=== PATIENT | female | born 1925 | race Caucasian/White ===

== ENCOUNTER 2016-05-15 17:45 | Emergency (ER) | payer MEDICARE, OTHER ==
[2016-05-15] VITALS (8 sets, daily range): BP systolic 159–174; BP diastolic 57–83; PULSE 75–84; RESP 12–24; O2SAT 94–99
[~2016-05-15] VITALS: Ht 160 cm; Wt 74.5 kg
[~2016-05-15 17:45] MED LIST: ASA325 PO; CALC600T12 PO; CHOL400C8 PO; CITA20TA PO; FLONASE; HYDR12.55 PO; MULT-1007 PO; OMEG-38 PO; OXYC-176 PO; VIS25 PO; VRP180TCR PO
[2016-05-15 17:57] LABS: BASOPHILS % (AUTO) 0.5 % (0-3); EOSINOPHILS % (AUTO) 10.8 % (0-5); MONOCYTES % (AUTO) 6.8 % (4-12); Mean Corpuscular Hemoglobin 30.3 pg (27.0-35.0); NEUTROPHILS % (AUTO) 48.4 % (40-74); Platelet Count 147 bil/L (150-400)
--- NOTE | 2016-05-15 18:01 | ED.REPORT ---
HPI-Neurologic Deficit Date of Service May 15, 2016 ED Provider: Narcisa Piedra MD 89 year old female with a history of atrial fibrillation, hypercholesterolemia, and HTN presents to the ER via EMS accompanied by her daughter due to sudden onset right side weakness. Last known normal around 17:00 today. Daughter reports that her partner heard screaming from the garage, and found her mother by the car with diffuse right side deficits. Medics report slurred speech and weakness on the right side upon their arrival at the patient's home, progressively worsening. Patient typically takes 325mg ASA daily, though family members are unsure if she has taken it today. Nursing Notes Stated Complaint: STROKE Chief Complaint: Neuro Symptoms/ Deficits Nursing Notes Reviewed: Yes Allergies: Coded Allergies: hydrocodone bitartrate (Verified Allergy, Severe, N&V, 05/15/16) Scheduled Aspirin-Expunged Drug, Do Not Renew! (Aspirin-Expunged Drug, Do Not Renew!) 325 Mg Tablet 325 MG PO DAILY CHOLECALCIFEROL-Expunged Drug, Do Not Renew! (VITAMIN D3-Expunged Drug, Do Not Renew!) 400 Unit Capsule 400 UNIT PO DAILY Calcium Carbonate (Calcium) 600 Mg Tablet 250 MG PO DAILY Citalopram-Expunged Drug, Do Not Renew! (Citalopram-Expunged Drug, Do Not Renew! ) 20 Mg Tablet 20 MG PO AM TAKE ONE-HALF(10MG) TO ONE(20MG) TABLET BY MOUTH IN THE MORNING AND ONE TABLET AT NIGHT. Fluticasone-Expunged Drug, Do Not Renew! (Flonase-Expunged Drug, Do Not Renew!) 120 Sprays/16 Gm Aero 2 SPR NA DAILY IN EACH NOSTRIL Hydrochlorothiazide-Expunged, Do Not Renew! (Hydrochlorothiazide-Expunged, Do Not Renew!) 12.5 Mg Tablet 12.5 MG PO AM Multivitamin (Multi-Vitamin Daily) 1 Each Tablet 1 EACH PO DAILYWM OMEGA-3/DHA/EPA/FISH OIL-Expunged Drug, Do No (FISH OIL 1,000 MG-Expunged Drug, Do Not Renew) 1 Each Capsule 2 EACH PO DAILY. INSTRUCTED TO STOP Oxycodone/APAP-Expunged Drug, Do Not Renew! (Percocet 5/325-Expunged Drug, Do Not Renew!) 1 Each Tablet 1-2 TAB PO Q4HP Verapamil-Expunged Drug, Do Not Renew! (Verapamil-Expunged Drug, Do Not Renew!) 180 Mg Tablet.sa 180 MG PO AM hydrOXYzine Pauline-Expunged Drug, Do Not Renew! (Vistaril-Expunged Drug, Do Not Renew!) 25 Mg Capsule 25 MG PO Q6HP General Time Seen by Provider: 17:59 Chief Complaint Weakness arm... (Right), Weakness leg... (Right) Hx Obtained From: Daughter Arrived By: Ambulance Sudden in Onset?: Yes Onset Occurred: 1 - 4 hours ago (17:00 today) Symptom Duration: Since onset Progression Since Onset: Gradually worsening Related History: Reports: Atrial fibrillation, Hypertension, Denies: Diabetes mellitus Similar Sx Previous: No Risk Factors TPA Administration/Criteria Stroke Thrombolytic Therapy : TPA Considered: Yes Neurologist Contacted: At bedside (Computer, video call) Disc Risk/Benefit/Alternatives: Yes Consent Obtained: Patient Intensive Monitoring Performed: Yes TPA Administered Intravenously: Yes Inclusion Criteria: Dx acute ischemic CVA, Onset < 3hr before Tx NIH Stroke Scale Level of Consciousness: Alert and responsive (0) Ask Month & Age: 0 questions right (2) Open/Close Eyes/Hand [employer]: Performs both tasks (0) Horizontal EO Movements: Partial gaze palsy (1) Visual Adams: No visual loss (0) Facial Palsy: Partial paral, lower (2) Right Arm Motor Drift (10s): No effort, limb fails (3) Left Arm Motor Drift (10s): No drift 10 sec (0) Right Leg Motor Drift (5s): No drift 5 sec (0) Left Leg Motor Drift (5s): No drift 5 sec (0) Limb Ataxia FNF/Heel-Martinez: Does not understand (0) Sensation (Arms/Legs/Face): No sensory loss (0) Language Aphasia: Can't ID materials (2) Dysarthria: Slurring intelligible (1) Extinction/Inattention: Inatt visual/tactile (1) NIHSS Score: 12 Time NIHSS Performed: 18:04 Date NIHSS Performed: May 15, 2016 Past Medical History Past Medical History Reports: Hyperlipidemia (Hypercholesterolemia), Hypertension, Denies: Diabetes mellitus Reports: Atrial fibrillation Past Surgical History Partial left and right knee replacement Reports: Hysterectomy Reports: Hip replacement Smoking History Unknown if Ever Smoker Social History Other Social History: Good social support Review of Systems Respiratory: Denies: Non-productive cough, Shortness of breath Cardiovascular: Denies: Chest pain Neurologic: Reports: Change LOC, Confusion, Focal weakness (Right Side), Slurred speech, Weakness, Denies: Seizure, Syncope Psychiatric: Reports: Change mental status Complete sys rev & neg: except as marked. Physical Exam Initial Vital Signs Vital Signs (First) Date Time Temp Pulse Resp B/P Pulse Ox O2 Delivery O2 Flow Rate FiO2 05/15/16 17:58 75 12 159/57 99 Room Air Initial VS: Reviewed Neck: Supple, Non-tender, Full range of motion Skin: Warm, Dry, No cyanosis General/Constitutional: Awake, Well developed, Well nourished Alertness: Positive: Confused, Disoriented, Responds to verb stimuli Head / Eyes: Atraumatic, Normocephalic Respiratory / Chest: Breath sounds NL, Breath sounds = bilat, No respiratory distress, No rales, No rhonchi, No wheezing Cardiovascular: Heart rate NL, Regular rhythm, Heart sounds NL, Peripheral circulation NL Mental Status: Positive: Disoriented to person, Disoriented to time, Responds to verbal stim Speech: Positive: Slurred Cranial Nerve Deficit: Positive: 7 - lower/asymetric smile Focal Weakness: Positive: Pronator drift R, Upper extremity R, Negative: Pronator drift L, Upper extremity L Difficulty following commands. See NIH Stroke Scale in the Risk section of this note. Back: Inspection NL, Non-tender, No CVA tenderness Upper Extremity / MS: Non-tender, Vascular intact [id number] triagnular skin tear on right arm. Not moving right arm. Interpretation & Diagnostics Lab Results Interpretation Result Diagram: 05/15/16 1752 05/15/16 1752 Test 05/15/16 17:52 05/15/16 18:38 White Blood Count 6.0th/mm3 (3.8-10.1) Red Blood Count 4.13mil/mm3 (3.90-5.20) Hemoglobin 12.5g/dL (12.0-15.6) Hematocrit 37.6% (35.0-46.0) Mean Corpuscular Volume 91.0fL (81-100) Mean Corpuscular Hemoglobin 30.3pg (27.0-35.0) Mean Corpuscular Hemoglobin Concent 33.2% (32.0-37.0) Red Cell Distribution Width 14.3% (12.3-15.4) Platelet Count 147bil/L (150-400) Neutrophils (%) (Auto) 48.4% (40-74) Lymphocytes (%) (Auto) 33.3% (14-46) Monocytes (%) (Auto) 6.8% (4-12) Eosinophils (%) (Auto) 10.8% (0-5) Basophils (%) (Auto) 0.5% (0-3) Prothrombin Time 10.0sec (8.1-12.5) Prothromb Time International Ratio 0.94ratio Activated Partial Thromboplast Time 27.0sec (22.8-33.0) Sodium Level 139mEq/L (134-144) Potassium Level 3.7mEq/L (3.5-5.2) Chloride Level 100mEq/L (97-108) Carbon Dioxide Level 25mmol/L (18-29) Blood Urea Nitrogen 20mg/dL (8-27) Creatinine 0.67mg/dL (0.57-1.00) Estimat Glomerular Filtration Rate 119mL/min (>59) Glucose Level 136mg/dL (60-99) Calcium Level 9.2mg/dL (8.5-10.1) Total Bilirubin 0.6mg/dL (0.0-1.2) Aspartate Amino Transf (AST/SGOT) 22U/L (0-50) Alanine Aminotransferase (ALT/SGPT) 15U/L (0-32) Alkaline Phosphatase 80U/L (25-165) Troponin T < 0.010ug/L (0.0-0.011) Total Protein 7.0g/dL (6.4-8.4) Albumin 4.0g/dL (3.4-5.0) Urine Color Yellow (YELLOW) Urine Appearance Clear (CLEAR,HAZY) Urine pH 6.5 (5.0-8.0) Urine Specific [place] 1.020 (1.003-1.035) Urine Protein Negativemg/dL (NEG,TRACE) Urine Glucose (UA) Negativemg/dL (NEGATIVE) Urine Ketones Negativemg/dL (NEGATIVE) Urine Occult Blood Large (NEGATIVE) Urine Nitrite Negative (NEGATIVE) Urine Bilirubin Negative (NEGATIVE) Urine Urobilinogen Normalmg/dL (NORMAL) Urine Leukocyte Esterase Small (NEGATIVE) Urine RBC 11-50/hpf (0-2) Urine WBC 0-5/hpf (0-5) Urine Epithelial Cells Moderate/hpf (NONE-MOD) Urine Crystals None seen (NONE SEEN) Urine Bacteria None/hpf (NONE-FEW) Urine Hyaline Casts None/lpf (NONE) Urine Granular Casts None seen (NONE SEEN) Urine Waxy Casts None seen (NONE SEEN) Urine Red Blood Cell Casts None seen (NONE SEEN) Urine White Blood Cell Casts None seen (NONE SEEN) Urine Mucus Present (None Seen) Urine Trichomonas None seen (NONE SEEN) Urine Yeast None (NONE SEEN) Urinalysis Comment None Urine Culture Reflexed Indicated ECG Interpretation ECG Interpretation: Sinus rhythm, rate [address] elevation No T wave inversion Q waves in 2, 3 and aVF Time: 18:22 Interpreted by: ED physician CT Head Interpretation IMPRESSION: 1. No evidence of hemorrhage or other definite acute intracranial abnormality. 2. Moderate chronic white matter small vessel ischemic changes and mild cerebral volume loss. Findings discussed with Dr. Antoine on 05/15/16 at 6 PM. This study fulfills neurological imaging criteria for inclusion or exclusion of acute stroke therapies based on available published neurological guidelines. Dictated by: Harley Price M.D. on 05/15/2016 at 17:58 Approved by: Harley Price M.D. on 05/15/2016 at 18:01 Study: Head CT no contrast Interpretation / Wet Read by: Interpret - Radiologist, Discussed w radiologist Re-Eval/Medical Decision Med Decision/Clinical Course 89-year-old female brought in by EMS for right-sided deficits progressing to right sided jaimie-neglect. Differential diagnosis includes but is not limited to hemorrhagic versus ischemic CVA versus hypoglycemia versus electrolyte abnormality. CT is extremely concerning for ischemic CVA. After long discussion with neurologist at [facility] Dr Turner and family, they have opted to have TPA push, however, they do not want thrombectomy. Patient's capillary blood glucose was 128 and her CMP was otherwise unremarkable. She does not show any signs of coagulopathy and is a good candidate for TPA at this time. Patient and family have been advised of risks of TPA, understanding the risk of hemorrhagic conversion, and are willing to proceed with TPA and transfer to [facility]. Source of Hx: Old records Re-Evaluation/Progress #1: Time of Eval: 18:19 Re-Evaluation/Progress Note: Patient's son is now present at bedside. Updated son and daughter on the plan of care, and discussed risks/benefits of TPA administration. Re-Evaluation/Progress #2: Time of Eval: 18:28 Re-Evaluation/Progress Note: Discussed risks/benefits of TPA administration vs thrombectomy with son and daughter. Re-Evaluation/Progress #3: Time of Eval: 18:51 Re-Evaluation/Progress Note: Patient's son has become difficult. Discussed need for transfer to [facility], and risks and benefits involved with transfer. Family members agree to the plan and request ground transport. Re-Evaluation/Progress #4: Time of Eval: 19:30 Re-Evaluation/Progress Note: Spouses of the son and daughter are now present at bedside. Consultation #1: Consulted With: On-call physician (Radiology) Call Returned at: 18:10 Note: No sign of bleeding on head CT. Consultation #2: Consulted With: Neurology ([facility]) Call Returned at: 18:14 Note: Pre-mix TPA. Will call in over stroke computer. Consultation #3: Consulted With: Neurology ([facility]) Call Returned at: 18:20 Note: Attempted to call into stroke computer. Patient is good candidate for TPA vs thrombectomy. Will discuss with son and daughter. Consultation #4: Consulted With: Neurology ([facility]) Call Returned at: 18:36 Note: Failed again to call into stroke computer. Consultation #5: Consulted With: Neurology ([facility]) Call Returned at: 18:51 Note: Recommends transfer to [facility]. Consultation #6: Consulted With: Neurology ([facility]) Call Returned at: 19:00 Note: Accepts transfer Counseled Regarding: Diagnosis, Lab results, Need for transfer Discharge & Departure Impression: Primary Impression: CVA (cerebral vascular accident) Disposition: Transfer, Acute Care Facility Receiving Hospital: [facility] Transfer Accepted: Yes Transfer Accepted at: 19:01 Transfer Reason: Higher level of care Spoke with: Specialty physician (Neurology) Patient Status: Stable for transfer Patient Informed: Yes Discharge Condition All VS Reviewed: Yes Condition: Stable Referrals: Keli Le MD (PCP) Crit Care Except Billable Proc Time Spent: 30-74 minutes Services Performed: Patient management by me, Time spent at bedside, Reviewing test results, Reviewing imaging, Discussing patient care, Documentation in record, Time with fam/surrogate Scribe Attestation Portions of this note were transcribed by Andrea Lundberg. I, Dr. Piedra, personally performed the history, physical exam and medical decision-making; I reviewed and confirmed the accuracy of the information in the transcribed note. Signed by: Tiff Norman. 05/15/2016 - 19:30 copies to: Keli Le MD, Rebecca A MD May 15, 2016 18:01 ANDREA LUNDBERG May 15, 2016 18:08
--- NOTE | 2016-05-15 18:03 | DRSVH ---
PROCEDURE: CT BRAIN (TPA) ([id number]) INDICATIONS: Stroke TECHNIQUE: Noncontrast 4.5 mm thick angled axial sections acquired from the foramen magnum to the vertex, with c oronal reformats. COMPARISON: None. FINDINGS: Image quality: Excellent. CSF spaces: Basal cisterns are patent. No extra-axial fluid collections. The ventricles are symmet montez in size and shape. There is mild cerebral volume loss, with resultant ventricular and sulcal pro minence. Brain: No intracranial hemorrhage, mass, or mass effect. There are subcortical, periventricular and deep white matter hypodensities consistent with moderate chronic small vessel ischemic changes. The sahni-white matter junction appears preserved. There is intracranial internal carotid artery atherosc lerosis. Skull and face: Calvarium and visualized facial bones appear intact, without suspicious lesions. Sinuses: Visualized sinuses and mastoids are clear. IMPRESSION: 1. No evidence of hemorrhage or other definite acute intracranial abnormality. 2. Moderate chronic white matter small vessel ischemic changes and mild cerebral volume loss. Findings discussed with Dr. Antoine on 05/15/16 at 6 PM. This study fulfills neurological imaging criteria for inclusion or exclusion of acute stroke therapie s based on available published neurological guidelines. Dictated by: Harley Price M.D. on 05/15/2016 at 17:58 Approved by: Harley Price M.D. on 05/15/2016 at 18:01
[2016-05-15 18:18] LABS: INR 0.94 ratio
[2016-05-15 18:23] LABS: TROPONIN T < 0.010 ug/L (0.0-0.011)
[2016-05-15] MEDS ORDERED: Alteplase (TPA) 100 mg/100 mL Premix IV ONE ×2 (18:50→19:35)
[2016-05-15] MEDS ORDERED: Alteplase (No Charge) 1 mg/mL Syringe IV ONE (18:50)
[2016-05-15 19:41] LABS: APPEARANCE,URINE CLEAR (CLEAR,HAZY); COLOR,URINE YELLOW (YELLOW); OCCULT BLOOD,URINE LARGE (NEGATIVE); PH,URINE 6.5 (5.0-8.0); UROBILINOGEN,URINE NORMAL (NORMAL)
[2016-05-15] MEDS ORDERED: 0.9% Sodium Chloride 100 ML IV SCH (19:50)
== END 2016-05-15 20:55 | disposition short-term general hospital (02) ==
LOC: SED 17:45
DX: I63.9 Cerebral infarction, unspecified (principal); I10 Essential (primary) hypertension; E78.5 Hyperlipidemia, unspecified; Z79.82 Long term (current) use of aspirin; Z88.5 Allergy status to narcotic agent
CPT/HCPCS: 36415; 37195; 51702; 70450; 80053; 81000; 82948; 84484; 85025; 85610; 85730; 87086; 93005; 96360; 99291; J2997